=== PATIENT | female | born 1955 | race Native Hawaiian/Other Pacific Islander ===

== ENCOUNTER 2016-03-12 09:33 | Outpatient (CLI) | payer BC ==
[2016-03-12 10:24] LABS: POTASSIUM 4.4 mmol/L (3.6-5.2); SODIUM 139 mmol/L (136-145)
== END 2016-03-12 20:48 | disposition home or self-care (01) ==
LOC: LABW 09:33
PROVIDERS: Nurse Practitioner
DX: R74.8 Abnormal levels of other serum enzymes (principal); R73.9 Hyperglycemia, unspecified; D64.9 Anemia, unspecified
CPT/HCPCS: 36415; 80053; 82607; 83036; 84443

== ENCOUNTER 2016-12-27 09:38 | Outpatient (CLI) | payer BC | END 2016-12-27 11:00 | disposition home or self-care (01) | LOC: MAMMO 09:38 | DX: Z12.31 Encounter for screening mammogram for malignant neoplasm of breast (principal) ==

== ENCOUNTER 2017-04-28 11:43 | Outpatient (CLI) | payer BC ==
[2017-04-28 12:01] LABS: PLATELET COUNT 223 K/uL (152-353)
[2017-04-28 12:04] LABS: POTASSIUM 4.7 mmol/L (3.6-5.2)
== END 2017-04-28 13:00 | disposition home or self-care (01) ==
LOC: LABW 11:43
PROVIDERS: Internal Medicine Cardiovascular Disease
DX: R06.09 Other forms of dyspnea (principal); Z79.899 Other long term (current) drug therapy; Z51.81 Encounter for therapeutic drug level monitoring
CPT/HCPCS: 36415; 80048; 83880; 85027; 85651

== ENCOUNTER 2017-09-03 18:33 | Emergency (ER) | payer BC ==
[~2017-09-03] VITALS: Ht 154.9 cm; Wt 93.0 kg
[2017-09-03 19:37] LABS: PLATELET COUNT 214 K/uL (152-353)
[2017-09-03 19:43] LABS: POTASSIUM 3.7 mmol/L (3.6-5.2)
[2017-09-03 21:20] VITALS: BP 160/88; TEMP 98.6
== END 2017-09-03 21:22 | disposition home or self-care (01) ==
LOC: ED 18:33
DX: N20.0 Calculus of kidney (principal)
CPT/HCPCS: 80053; 81000; 83735; 85027; 96372; 96374; 96375; 99284; J1885; J2405

== ENCOUNTER 2018-05-15 09:10 | Outpatient (CLI) | payer BC ==
[2018-05-15 09:34] LABS: PLATELET COUNT 193 K/uL (152-353)
[2018-05-15 09:46] LABS: POTASSIUM 4.1 mmol/L (3.6-5.2)
== END 2018-05-15 19:21 | disposition home or self-care (01) ==
LOC: LABW 09:10
PROVIDERS: Internal Medicine Cardiovascular Disease
DX: E78.5 Hyperlipidemia, unspecified (principal); Z79.899 Other long term (current) drug therapy
CPT/HCPCS: 36415; 80053; 80061; 85027

== ENCOUNTER 2018-10-20 09:17 | Outpatient (CLI) | payer OTHER, BC ==
[2018-10-20 10:08] LABS: PLATELET COUNT 215 K/uL (152-353)
[2018-10-20 10:27] LABS: POTASSIUM 4.2 mmol/L (3.6-5.2)
== END 2018-10-20 21:45 | disposition home or self-care (01) ==
LOC: LABW 09:17
PROVIDERS: Nurse Practitioner
DX: I10 Essential (primary) hypertension (principal); E78.00 Pure hypercholesterolemia, unspecified; R53.82 Chronic fatigue, unspecified; E55.9 Vitamin D deficiency, unspecified; E53.8 Deficiency of other specified B group vitamins; E03.8 Other specified hypothyroidism
CPT/HCPCS: 36415; 80053; 80061; 82306; 82607; 84443; 85027

== ENCOUNTER 2019-12-27 09:29 | Outpatient (CLI) | payer OTHER, BC ==
[2019-12-27 09:52] LABS: PLATELET COUNT 227 K/uL (152-353)
[2019-12-27 09:55] LABS: POTASSIUM 4.2 mmol/L (3.6-5.2)
== END 2019-12-27 20:19 | disposition home or self-care (01) ==
LOC: LABW 09:29
PROVIDERS: Internal Medicine Cardiovascular Disease
DX: R06.02 Shortness of breath (principal); Z79.899 Other long term (current) drug therapy
CPT/HCPCS: 36415; 80053; 83880; 85027

== ENCOUNTER 2022-09-01 08:40 | Outpatient (CLI) | payer BC | END 2022-09-01 20:22 | disposition home or self-care (01) | LOC: MRI 08:40 | PROVIDERS: ATTEND Nurse Practitioner | DX: Z12.31 Encounter for screening mammogram for malignant neoplasm of breast (principal); M54.59 Other low back pain; R53.1 Weakness; N95.8 Other specified menopausal and perimenopausal disorders ==